=== PATIENT | male | born 1950 | race Caucasian/White ===

== ENCOUNTER 2020-01-21 07:27 | Outpatient (CLI) | payer MEDICARE, OTHER, SELFPAY ==
--- NOTE | ~2020-01-21 | XR_ITS ---
EXAMINATION: CT abdomen pelvis wo/w con, XR abdomen/kub 1V DATE: 01/21/2020 08:14 INDICATION: Microscopic hematuria TECHNIQUE: 1. Computed tomography (CT) of the abdomen and pelvis was performed without intravenous contrast. CT of the abdomen and pelvis was then performed with a total of 130 mL Omnipaque-350 intravenous contras t using a double-bolus technique for simultaneous opacification of the renal parenchyma and renal col lecting system. Automated exposure control and iterative reconstruction technique were employed. The dose-length product was 836.58 mGy-cm. 2. AP view of the abdomen and pelvis was obtained on 2 radiographs. COMPARISON: None FINDINGS: CT UROGRAM: A few calcified nodules at the bilateral lower lobes as well as a few scattered splenic calcification s consistent with old granulomatous disease. Heart size is normal. No pericardial or pleural effusion . Liver, gallbladder pancreas and bilateral adrenal glands are normal. Air-fluid level within a 3.8 x 1.8 cm duodenal diverticulum posterior to the head of the pancreas. There are bilateral low-attenuat ion nonenhancing renal cysts the largest at the upper pole of the left kidney measuring 3.9 cm. No ur olithiasis or suspicious renal parenchymal lesions. The bilateral ureters are opacified in their enti rety and demonstrate no filling defects or urothelial irregularities. Bilateral ureteral jets are vis ualized within the normal-appearing bladder. Mild scattered colonic diverticulosis with sigmoid predo minance and without adjacent inflammatory change to suggest diverticulitis. Small bowel and appendix are normal. No free intraperitoneal gas or fluid. No pathologically enlarged abdominal or pelvic lymp hadenopathy. There is calcified atherosclerosis of the aorta and many of the other arteries. Mild lum bar levocurvature with moderate to severe spondylosis. ABDOMEN RADIOGRAPH(S): Tiny phlebolith in the left hemipelvis. There are couple small calcified granulomata in the right low er lobe projecting over the liver. No urolithiasis. Normal bowel gas pattern. IMPRESSION: 1. Bilateral renal cysts. Otherwise normal kidneys, ureters and bladder with no suspicious parenchyma l lesions, urolithiasis or urothelial irregularities. Reviewed, dictated and finalized at location A. IMPRESSION: 1. Bilateral renal cysts. Otherwise normal kidneys, ureters and bladder with no suspicious parenchymal lesions, urolithiasis or urothelial irregularities.
[2020-01-21 07:59] LABS: Estimated Glomerular Filt Rate 60
== END 2020-01-21 07:28 | disposition home or self-care (01) ==
PROVIDERS: PCP Family Medicine; Visit Provider Urology
DX: R31.29 Other microscopic hematuria (principal); N28.1 Cyst of kidney, acquired
CPT/HCPCS: 36415; 74018; 74178; Q9967

== ENCOUNTER → 2021-09-15 07:32 | Outpatient (CLI) | payer MEDICARE, OTHER, SELFPAY ==
--- NOTE | ~2021-09-15 | MR_ITS ---
EXAMINATION: MR knee LT wo con DATE: 09/15/2021 08:08 INDICATION: Left knee pain. TECHNIQUE: Magnetic resonance imaging (MRI) of the left knee was performed without intravenous contra st. Sequences included axial PD-weighted FS FSE, coronal PD-weighted FSE and PD-weighted FS FSE, sagi ttal PD-weighted FSE, and sagittal T2-weighted FS FSE. COMPARISON: None. FINDINGS: Medial compartment: Medial meniscus is normal. There is deep partial thickness cartilage loss of femoral condyle involvin g the central articular surface. Tibial cartilage is normal. Lateral compartment: Lateral meniscus is normal. Lateral compartment cartilage is normal. Patellofemoral compartment: There is shallow partial-thickness cartilage loss of patellar lateral facet. There is cartilage surfa ce irregularity of trochlea. There is edema in suprapatellar fat pad. Ligaments and tendons: The anterior and posterior cruciate ligaments are normal. There are changes of prior sprains of media l collateral ligament and fibular collateral ligament characterized by increased signal intensity pro ximally. There is mild patellar tendinopathy. Fluid: There is a small knee joint effusion. There is trace fluid in a Robert's cyst. Osseous/other: There is mild prepatellar and superficial infrapatellar bursitis. IMPRESSION: 1. Moderate chondrosis of medial compartment and mild chondrosis of patellofemoral compartment. 2. Small knee joint effusion. Reviewed, dictated and finalized at location A. PAD GRINDER IMPRESSION: 1. Moderate chondrosis of medial compartment and mild chondrosis of patellofemo ral compartment. 2. Small knee joint effusion.
== END ==
PROVIDERS: PCP Family Medicine; Visit Provider Nurse Practitioner
DX: M25.562 Pain in left knee (principal); M22.2X2 Patellofemoral disorders, left knee; M25.462 Effusion, left knee
CPT/HCPCS: 73721

== ENCOUNTER 2021-09-19 13:10 | Outpatient (CLI) | payer MEDICARE, OTHER, SELFPAY ==
--- NOTE | 2021-09-19 13:56 | ECHO_ITS ---
Patient Info Name: Silveiro Tavera Age: 71 years : 1950 Gender: Male Ht: 69 in Wt: 190 lbs BSA: 2.07 m2 HR: 65 bpm BP: 148 / 93 mmHg Heart Rhythm: Sinus Rhythm Technical Quality: Fair Exam Date: 09/19/2021 2:05 PM Exam Location: [facility] Pulmonary Patient Status: Outpatient Admit Date: 09/19/2021 Staff Ordering Physician: Umu Carey MD Watermelon Inspector: Carmen Solares RDCS Attending Provider: Umu Carey MD Exam Type: CA echo doppler color flow Study Info Indications - essential htn, cardiac murmur Complete two-dimensional, color flow and Doppler transthoracic echocardiogram is performed. Summary 1. Complete two-dimensional, color flow and Doppler transthoracic echocardiogram is performed. 2. Left ventricular chamber dimension is normal. 3. Ventricular septum is sigmoid shaped. No LVOT obstruction. 4. Left ventricular systolic function is normal, estimated at 65-70%. 5. The left ventricular diastolic function is normal. 6. E/e' 7 is not elevated. 7. There is trace tricuspid valve regurgitation. 8. No pulmonary hypertension, estimated pulmonary arterial systolic pressure is 26 mmHg. 9. The aortic root size at the sinus of Valsalva is borderline dilated at 4.0 cm. 10. There is trivial pericardial effusion. Left Ventricle E/e' 7 is not elevated. Ventricular septum is sigmoid shaped. No LVOT obstruction. Left ventricular chamber dimension is normal. Left ventricular systolic function is normal, estimated at 65-70%. The left ventricular diastolic function is normal. Right Ventricle Right ventricular systolic function is normal and with normal TAPSE 2.0 cm. Right ventricular chamber dimension is normal. Left Atria Left atrial chamber dimension is normal. Right Atria Right atrial chamber dimension is normal. Aortic Valve The aortic valve is trileaflet. There is no aortic valve stenosis. There is no aortic valve regurgitation. Pulmonic Valve There is no pulmonic regurgitation. Mitral Valve There is no mitral valve stenosis. There is no mitral valve regurgitation. Tricuspid Valve There is trace tricuspid valve regurgitation. No pulmonary hypertension, estimated pulmonary arterial systolic pressure is 26 mmHg. Pericardium/Pleural There is trivial pericardial effusion. Inferior Vena Cava Normal inferior vena cava with >50% collapse upon inspiration consistent with normal right atrial pressure, 5 mmHg. Aorta The aortic root size at the sinus of Valsalva is borderline dilated at 4.0 cm. Left Ventricular Outflow Tract Name Value Normal LVOT 2D LVOT Diameter 2.0 cm LVOT Doppler LVOT Peak Gradient 7 mmHg LVOT Mean Gradient 3 mmHg LVOT VTI 28 cm LVOT VTI/AV VTI Ratio 0.9 LVOT Stroke Volume 88 ml LVOT CO 5.3 l/min LVOT CI 2.6 l/min/m2 Pulmonic Valve Name
== END 2021-09-19 13:11 | disposition home or self-care (01) ==
LOC: ANHCARD 13:11
PROVIDERS: PCP Family Medicine; Visit Provider Family Medicine
DX: I10 Essential (primary) hypertension (principal); R01.1 Cardiac murmur, unspecified
CPT/HCPCS: 93306

== ENCOUNTER 2021-11-20 14:39 | Inpatient (IN) | payer MEDICARE, OTHER, SELFPAY ==
--- NOTE | ~2021-11-20 | XR_ITS ---
EXAM: XR abdomen NG/feed tube insert HISTORY: NG tube insertion COMPARISON: CT abdomen and pelvis, same date. X-ray abdomen 01/21/2020. FINDINGS: Clear lung bases. NG tube, tip and side port project over the expected location of the sto mach. Multiple loops of dilated small bowel in the upper abdomen. IMPRESSION: NG tube, in good position. Reviewed, dictated and finalized at location K. IMPRESSION: NG tube, in good position.
--- NOTE | ~2021-11-20 | XR_ITS ---
EXAMINATION: XR abdomen obstructive series DATE: 11/22/2021 08:53 INDICATION: Follow-up small bowel obstruction TECHNIQUE: Supine and upright views of the abdomen. FINDINGS: Comparison to 11/21/2021 The visualized lung parenchyma is normal.. There is a nonobstructive bowel gas pattern. Gas and stool are seen throughout the colon to the level of the rectum. There is no free air. NG tube in the stom ach. IMPRESSION: 1. No acute abdominal abnormality. No definite small bowel dilation on the current examination. Reviewed, dictated and finalized at location A. IMPRESSION: 1. No acute abdominal abnormality. No definite small bowel dilation on the cur rent examination.
--- NOTE | ~2021-11-20 | XR_ITS ---
EXAMINATION: XR abdomen obstructive series DATE: 11/21/2021 08:20 INDICATION: Small bowel obstruction TECHNIQUE: Upright and supine views of the abdomen were obtained. COMPARISON: 11/20/2021 FINDINGS: The nasogastric tube is in the stomach. There are multiple persistently dilated loops of sm all bowel. No free intraperitoneal gas is identified. Contrast from earlier CT scan opacifies the uri nary bladder. There is severe lumbar spondylosis. IMPRESSION: 1. Small bowel obstruction without obvious change. Reviewed, dictated and finalized at location A.
--- NOTE | ~2021-11-20 | CT_ITS ---
EXAMINATION: CT abdomen pelvis w con DATE: 11/20/2021 16:04 INDICATION: Epigastric pain hx of SBO feels similar TECHNIQUE: Computed tomography (CT) of the abdomen and pelvis was performed with 100 mL Omnipaque-300 intravenous contrast. Automated exposure control and iterative reconstruction technique were employe d. The dose-length product was 752.34 mGy-cm. COMPARISON: 01/21/2020. FINDINGS: Lower thorax: Coronary artery calcifications. Liver: Normal. Biliary/Gallbladder: Gallbladder is normal. No bile duct dilation. Spleen: Normal. Pancreas: No mass or duct dilation. Adrenals:No mass. Kidneys: Bilateral atrophy. Bilateral cysts and probable cysts. GI tract: Gastric distention. Antral wall edema as can be seen with gastritis. Multiple loops of dila ginger small bowel, uniform mucosal enhancement, interloop fluid. Transition point in the right lower qu adrant. Diverticulosis without diverticulitis. Normal appendix. Mesentery/Peritoneum: No ascites, mass, or free air. Retroperitoneum: No mass. Pelvis: Pelvic organs are within normal limits. Soft Tissues: Soft tissues and body wall unremarkable. Bones: No acute osseous finding. IMPRESSION: Small bowel obstruction, transition point in the right lower quadrant possibly secondary to adhesion. Reviewed, dictated and finalized at location K.
[2021-11-20 14:41] VITALS: BP 142/82; PULSE 61; RESP 16; TEMP 36.2; O2SAT 96
--- NOTE | 2021-11-20 14:52 | ECG_ITS ---
Measurements Intervals [place] Rate: 65 P: 44 ME: 189 QRS: 24 QRSD: 91 T: 35 QT: 400 QTc: 417 Interpretive Statements SINUS RHYTHM WITH SINUS ARRHYTHMIA MINIMAL Q WAVES- INFERIOR LEADS BASELINE ARTIFACT- I, II, AVR, AVL, V5 BORDERLINE ECG Electronically Signed On 11-20-2021 16:32:58 CDT by Chidi Melgar D.O.
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
[2021-11-20 15:19] LABS: Basophils Percent Auto 0.5 % (0.2-1.2); Eosinophils Absolute Auto 0.1 K/mm3 (0-0.3); Hematocrit 40.2 % (42.0-52.0); Hemoglobin 13.7 g/dL (14.0-18.0); Immature Granulocyte Absolute 0.03 K/mm3 (0.00-0.031); Immature Granulocyte Percent A 0.4 % (0-0.5); Lymphocytes Absolute Auto 0.78 K/mm3 (0.9-3.2); Lymphocytes Percent Auto 9.9 % (18.3-44.2); Mean Corpuscular HGB Conc 34.1 g/dl (32-36); Mean Corpuscular Hemoglobin 31.9 pg (26-34); Mean Corpuscular Volume 93.7 fl (80-100); Monocytes Absolute Auto 0.4 K/mm3 (0.1-0.6); Monocytes Percent Auto 5.3 % (2.6-8.5); Neutrophils Absolute Auto 6.5 K/mm3 (1.3-6.7); Neutrophils Percent Auto 82.9 % (45.5-73.1); Platelet Count Result 172 k/mm3 (150-375); Red Blood Count 4.29 M/mm3 (4.6-6.20); Red Cell Distribution Width 11.7 % (11.5-14.5); White Blood Count 7.9 K/mm3 (4.5-10.0)
[2021-11-20 15:24] LABS: Lactic Acid Reflex 1.3 mmol/L (0.7-2.0)
[2021-11-20 15:28] LABS: Alanine Aminotransferase 17 U/L (6-50); Albumin Level 4.2 g/dL (3.5-5.1); Alkaline Phosphatase 62 U/L (38-126); Anion Gap 7 mmol/L (8-16); Aspartate Amino Transferase 29 U/L (17-59); Bilirubin,Total 0.6 mg/dL (0.2-1.3); Blood Urea Nitrogen 22 mg/dL (9-20); Calcium 8.8 mg/dL (8.4-10.2); Carbon Dioxide 31 mmol/L (22-30); Chloride 101 mmol/L (98-107); Estimated CRCL calculation 51 ml/min; Estimated Glomerular Filt Rate 60; Glucose 133 mg/dL (65-110); Lipase 132 U/L (23-300); Potassium 4.2 mmol/L (3.4-5.0); Sodium 139 mmol/L (137-145)
[2021-11-20] MEDS: LIDOCAINE HCL 2% VISC SOLN 15 ML UDC 20 ML PO (15:36)
[2021-11-20] MEDS: MAG HYDROX/AL HYDROX/SIMETH 30 ML UDC PO (15:36)
[2021-11-20] MEDS: SODIUM CHLORIDE 0.9% IV 1,000 ML 999 ML IV CONT (15:37)
[2021-11-20 16:36] LABS: Appearance Urine Clear (Clear); Bilirubin Urine Negative (Negative); Blood Urine 1+ (Negative); Color Urine Yellow (Yellow); Glucose Urine UA Negative (Negative); Ketones Urine 3+ mg/dL (Negative); Leukocyte Esterase Ur Negative LEU/UL (Negative); Nitrate Urine Negative (Negative); Protein Urine 1+ mg/dL (Negative); Specific Grav Ur 1.015 (1.001-1.035); Urobilinogen Urine 0.2 mg/dL (<2.0); pH Urine 7.5 (5.0-9.0)
[2021-11-20 16:38] LABS: Add Urine Microscopic? YES
[2021-11-20 16:48] LABS: Bacteria Urine Trace /hpf; Mucus Urine Rare /lpf; RBC Urine 21-50 /hpf (0-2); WBC Urine 0-3 /hpf
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
[2021-11-20 17:38] VITALS: BP 155/88; PULSE 67; RESP 17; O2SAT 97
[2021-11-20 18:18] LABS: SARS-CoV-2 RNA PCR Negative
[2021-11-20 19:08] VITALS: BP 146/76; PULSE 78; RESP 18; O2SAT 99
[2021-11-20 20:09] VITALS: BMI 28.5
[2021-11-20] MEDS: SODIUM CHLORIDE 0.9% IV 1,000 ML 125 ML IV CONT (20:12)
--- NOTE | 2021-11-20 21:25 | ADMGEN ---
This patient, Silverio Tavera, was admitted to 3 [facility] Surg Room 307-01. Patient/family oriented to hospital policies and general routines including ID bracelet, bed and alarms, visiting hours, pain management, procedures, bathroom and other care routines, personal items, smoking policy, room service/diet, and visiting hours. Information on how to activate the Rapid Response Team has been discussed. Patient/Family are encouraged to report perceived risks to care and to ask questions if they do not understand what they are told or what they should do.
[2021-11-20 22:00] VITALS: BP 133/76; PULSE 60; RESP 16; TEMP 36.5; O2SAT 95
[2021-11-21] MEDS: SODIUM CHLORIDE 0.9% IV 1,000 ML 125 ML IV CONT ×3 (04:21→23:54)
[2021-11-21] MEDS: ONDANSETRON INJ 4 MG/2 ML VIAL IV PUSH ×3 (04:39→13:07)
[2021-11-21 05:52] VITALS: BP 140/66; PULSE 71; RESP 16; TEMP 36.7; O2SAT 92
[2021-11-21 06:33] LABS: Basophils Percent Auto 0.5 % (0.2-1.2); Eosinophils Absolute Auto 0.1 K/mm3 (0-0.3); Eosinophils Percent Auto 1.3 % (0-4.4); Hematocrit 38.8 % (42.0-52.0); Hemoglobin 13.1 g/dL (14.0-18.0); Immature Granulocyte Absolute 0.01 K/mm3 (0.00-0.031); Immature Granulocyte Percent A 0.1 % (0-0.5); Lymphocytes Absolute Auto 0.79 K/mm3 (0.9-3.2); Lymphocytes Percent Auto 10.4 % (18.3-44.2); Mean Corpuscular HGB Conc 33.8 g/dl (32-36); Mean Corpuscular Hemoglobin 31.6 pg (26-34); Mean Corpuscular Volume 93.7 fl (80-100); Mean Platelet Volume 8.9 fl (7.4-10.4); Monocytes Absolute Auto 0.6 K/mm3 (0.1-0.6); Monocytes Percent Auto 7.4 % (2.6-8.5); Neutrophils Absolute Auto 6.1 K/mm3 (1.3-6.7); Neutrophils Percent Auto 80.3 % (45.5-73.1); Platelet Count Result 151 k/mm3 (150-375); Red Blood Count 4.14 M/mm3 (4.6-6.20); Red Cell Distribution Width 11.7 % (11.5-14.5); White Blood Count 7.6 K/mm3 (4.5-10.0)
[2021-11-21 06:51] LABS: Anion Gap 6 mmol/L (8-16); Blood Urea Nitrogen 18 mg/dL (9-20); Calcium 8.4 mg/dL (8.4-10.2); Carbon Dioxide 32 mmol/L (22-30); Chloride 103 mmol/L (98-107); Estimated CRCL calculation 56 ml/min; Estimated Glomerular Filt Rate > 60; Glucose 113 mg/dL (65-110); Magnesium 1.9 mg/dL (1.6-2.3); Potassium 3.7 mmol/L (3.4-5.0); Sodium 141 mmol/L (137-145)
[2021-11-21] MEDS: ENOXAPARIN 40 MG/0.4 ML SYRINGE SUB-Q (08:53)
[2021-11-21 09:55] VITALS: O2SAT 92
--- NOTE | 2021-11-21 11:48 | PM.CNGS ---
Assessment and Plan Assessment and plan (1) Bowel obstruction: Onset Date: ~11/2021 Qualifiers: Intestinal obstruction extent: unspecified extent Intestinal obstruction type: unspecified Qualified Code(s): K56.609 - Unspecified intestinal obstruction, unspecified as to partial versus complete obstruction Code(s): K56.609 - Unspecified intestinal obstruction, unspecified as to partial versus complete obstruction Status: Acute Assessment and Plan: Pt presents with an apparent SBO. He however has never had previous abd. surgery Therefore is some a unusual. Perhaps he has had some element of inflammatory change in the abdomen in the past that have led to adhesions. For now will treat conservatively with bowel rest, serial abdominal examinations and radiology tests and NG decompression. Plan repeat abdominal films morning and consider possible small-bowel follow-through. Patient knows surgical intervention may be needed if this does not resolve with conservative management. (2) Abdominal pain: Onset Date: ~11/2021 Qualifiers: Abdominal location: unspecified location Qualified Code(s): R10.9 - Unspecified abdominal pain Code(s): R10.9 - Unspecified abdominal pain Status: Acute Assessment and Plan: Related to gastric distension and obstruction. Somewhat improved after NG placement. (3) Essential hypertension: Onset Date: Unknown Code(s): I10 - Essential (primary) hypertension Status: Acute Assessment and Plan: hospitalist will order IV medications to control this until he can resume his oral medications. (4) BPH w/o urinary obs/LUTS: Onset Date: ~2016 Code(s): N40.0 - Benign prostatic hyperplasia without lower urinary tract symptoms Status: Acute Assessment and Plan: Resume home medications when able to get NG out (5) Dyslipidemia: Code(s): E78.5 - Hyperlipidemia, unspecified Status: Acute (6) Polymyalgia rheumatica: Code(s): M35.3 - Polymyalgia rheumatica Status: Acute (7) Depression: Qualifiers: Depression Type: unspecified Qualified Code(s): F32.9 - Major depressive disorder, single episode, unspecified Code(s): F32.9 - Major depressive disorder, single episode, unspecified Status: Acute History of Present Illness Consult details Consult date: 11/21/21 Reason for consult: abdominal pain Narrative: Patient is a pleasant 71-year-old white male presented the emergency room yesterday with nausea vomiting abdominal distention. Workup the emergency room revealed what appeared to be small-bowel obstruction with a transition zone in the right lower quadrant. (see CT report). NG tube was placed and he had about 2000 cc out overnight. He is feeling somewhat better today. He is passing a little bit of flatus he states. No bowel movement since entering the hospital. His last bowel movement was yesterday morning. Further history reveals that the patient a similar episode 51 years old. He remembers becoming sick at work then going to hospital and stain for about 4 days. He cannot remember if he had an NG to or what they told him caused the problem. Patient also knows that within the last for 5 years has had a colonoscopy and hadjust 1 or 2 polyps on that no other problems. Review of Systems Review of Systems: All systems reviewed & are unremarkable except as noted in HPI and below (HPI) Constitutional: Constitutional: Reports as per HPI, Denies chills, Reports fatigue and Denies fever(s) Eyes: Eyes: Reports no additional eye complaints ENT: Reports Normal hearing present and Denies dizziness Cardiovascular: Cardiovascular: Reports no additional cardiovascular complaints, Denies chest pain and Denies irregular heart rhythm Comments: Hx of HTN, Hyperlipidemia, and Respiratory: Respiratory: Reports no additional respiratory complaints Gastrointestin
[2021-11-21] MEDS: MORPHINE SULFATE (*CRX) 2 MG/ML INJ IV PUSH (14:13)
[2021-11-21 14:41] VITALS: BP 137/71; PULSE 71; RESP 16; TEMP 37; O2SAT 93
[2021-11-21] MEDS: PROCHLORPERAZINE EDISYLATE 10 MG/2 ML VIAL IV PUSH (14:44)
--- NOTE | 2021-11-21 15:20 | PM.IMPN ---
Progress Note: A&P Assessment and Plan (1) Bowel obstruction: Qualifiers: Intestinal obstruction extent: unspecified extent Intestinal obstruction type: unspecified Qualified Code(s): K56.609 - Unspecified intestinal obstruction, unspecified as to partial versus complete obstruction Code(s): K56.609 - Unspecified intestinal obstruction, unspecified as to partial versus complete obstruction Status: Acute Assessment and Plan: Patient denies ever having any abdominal surgery, but states he did have a small bowel obstruction approximately 25 years ago. General surgery has been consult and appreciate further recommendations. Patient is to have an NG tube placed to low intermittent suction. Patient will be kept NPO at this time and hydrated with IV fluids. 11/21/2021 interval history: patient with abdominal pain and history of small-bowel obstruction, CT scan of the abdomen showed patient has a a small-bowel obstruction and patient is placed on NG tube, this morning patient states he is passing gas, seen by surgery service KUB was done shows persistent small bowel obstruction, will continue present management with NG tube, hydration and pain management, will continue to monitor and further recommendation to follow. (2) Essential hypertension: Code(s): I10 - Essential (primary) hypertension Status: Acute Assessment and Plan: Patient is going to be NPO secondary to small-bowel obstruction. Will have p.r.n. medication available for any hypertension. Will resume patient's home medications once patient is able to take oral intake. Will adjust medications accordingly for optimal blood pressure control. Subjective Date/time seen: 11/21/21 15:20 Chief Complaint: Abdominal pain HPI-Narrative: Mr. Tavera is a 71-year-old gentleman who presented emergency room with complaints of increasing abdominal pain that started around 10 30 this morning. Patient states that he got up this morning and was getting ready to watch his grandchildren and had 2 cups of coffee and thought he better eat breakfast. Patient states he did not feel like eating breakfast, but he make himself eat some cereal. Patient states after that at approximately 10:30 a.m. he began having abdominal pain with nausea. Patient states he felt extremely bloated and felt that if he would throw up he would feel better. Patient states he attempted to make himself vomit but he was unsuccessful. Patient states the abdominal bloating and pain became worse and he decided come to the emergency room. Patient states right before coming to the emergency room he did have a very small bowel movement. Patient states he typically has daily bowel movements without any difficulty. Patient states approximately 25 years ago he did have a small-bowel obstruction and he had an NG-tube placed, but the etiology of that bowel obstruction was never discovered. Patient denies having any abdominal surgeries. Patient does have a known history of diverticulosis, depression, hypertension, and BPH. Patient states he has been taking all medications without any difficulty him doing very well until 10 30 this morning. Patient states he is very active and he watches multiple grand children at least 3 times weekly. 11/21/2021 interval history: patient with abdominal pain and history of small-bowel obstruction, CT scan of the abdomen showed patient has a a small-bowel obstruction and patient is placed on NG tube, this morning patient states he is passing gas, seen by surgery service KUB was done shows persistent small bowel obstruction, will continue present management with NG tube, hydration and pain management, will continue to monitor and further recommendation to follow. Review of Systems Review of Systems: All systems reviewed & are unremarkable except as noted in HPI and below Exam Narrative: Patient is comfortable, NAD HEENT: eyes are clear and none icteric LUNGS:CTA HEART:
[2021-11-21 22:00] VITALS: BP 146/74; PULSE 73; RESP 18; TEMP 37.2; O2SAT 93
[2021-11-22 06:00] VITALS: BP 141/71; PULSE 74; RESP 18; TEMP 37; O2SAT 95
[2021-11-22 08:41] LABS: Hematocrit 35.9 % (42.0-52.0); Hemoglobin 11.6 g/dL (14.0-18.0); Mean Corpuscular HGB Conc 32.3 g/dl (32-36); Mean Corpuscular Hemoglobin 31.9 pg (26-34); Mean Corpuscular Volume 98.6 fl (80-100); Platelet Count Result 127 k/mm3 (150-375); Red Blood Count 3.64 M/mm3 (4.6-6.20); Red Cell Distribution Width 11.9 % (11.5-14.5); White Blood Count 6.5 K/mm3 (4.5-10.0)
[2021-11-22 08:50] LABS: Alanine Aminotransferase 14 U/L (6-50); Alkaline Phosphatase 45 U/L (38-126); Anion Gap 5 mmol/L (8-16); Aspartate Amino Transferase 23 U/L (17-59); Bilirubin,Total 0.5 mg/dL (0.2-1.3); Blood Urea Nitrogen 20 mg/dL (9-20); Calcium 7.6 mg/dL (8.4-10.2); Carbon Dioxide 28 mmol/L (22-30); Chloride 107 mmol/L (98-107); Estimated CRCL calculation 56 ml/min; Estimated Glomerular Filt Rate > 60; Glucose 105 mg/dL (65-110); Lactic Acid Reflex 0.8 mmol/L (0.7-2.0); Potassium 3.6 mmol/L (3.4-5.0); Sodium 140 mmol/L (137-145)
[2021-11-22 08:51] LABS: Magnesium 1.9 mg/dL (1.6-2.3)
--- NOTE | 2021-11-22 09:27 | PM.PNGS ---
Progress Note: A&P Assessment and Plan (1) Bowel obstruction: Onset Date: ~11/2021 Qualifiers: Intestinal obstruction extent: unspecified extent Intestinal obstruction type: unspecified Qualified Code(s): K56.609 - Unspecified intestinal obstruction, unspecified as to partial versus complete obstruction Code(s): K56.609 - Unspecified intestinal obstruction, unspecified as to partial versus complete obstruction Status: Acute Assessment and Plan: Seems to be resolving with conservative management. Will plan to clamp NG and give patient 1 dose of milk a magnesia. Will then leave the NG clamped and try clear liquids. If he is doing well without signs of nausea this afternoon will consider removing NG and advancing to full liquids. We did discuss possibility of a small bowel follow-through but since he is doing well he would like to see if he can advance without further problems. Since he has not had previous surgery I do not feel strongly that we needed since he is now having bowel movements and his plain films are showing no signs of obstruction. (2) Abdominal pain: Onset Date: ~11/2021 Qualifiers: Abdominal location: unspecified location Qualified Code(s): R10.9 - Unspecified abdominal pain Code(s): R10.9 - Unspecified abdominal pain Status: Acute Assessment and Plan: Now resolved. He states he does not have abdominal pain today. (3) Heart murmur: Onset Date: Unknown Code(s): R01.1 - Cardiac murmur, unspecified Status: Acute Assessment and Plan: Patient states that he has had an echocardiogram in the recent past. Dr. Carey, his primary care doctor, sent him for an echocardiogram which apparently showed and non concerning valvular dysfunction leading to the murmur. (4) Essential hypertension: Onset Date: Unknown Code(s): I10 - Essential (primary) hypertension Status: Acute Assessment and Plan: May be able to begin resuming oral meds for this if hospitalist feels comfortable. Subjective Subjective Date/Time Seen: 11/22/21 09:27 Patient reports: no new complaints and bowel movement Interval history: When I enter the room patient laying in bed with NG on. Only 300 cc out overnight. Patient states that he was able to walk 8 laps around the sq here on the floor last evening. He has had 2 separate bowel movements 1 at 4:00 a.m. 1 at 6:00 a.m. and feels much better. Review of Systems Review of Systems: All systems reviewed & are unremarkable except as noted in HPI and below Constitutional: Constitutional: Reports as per HPI, Denies chills and Denies fever(s) Cardiovascular: Cardiovascular: Denies chest pain and Denies dyspnea Respiratory: Respiratory: Reports no additional respiratory complaints and Denies dyspnea Gastrointestinal: Gastrointestinal: Reports as per HPI and Denies bloating Musculoskeletal: Musculoskeletal: Reports no additional musculoskeletal complaints Neurologic: Denies memory loss Psychiatric: Psychiatric: Denies anxiety and Denies memory loss Exam Const: General: cooperative, comfortable, alert and awake Orientation/consciousness: patient oriented x3 HENMT: Head: normal to inspection Mouth: Yes moist mucous membranes Chest: Chest palpation & inspection: normal inspection of the chest Resp: Effort & Inspection: normal respiratory effort Auscultation: clear to auscultation bilaterally Cardio: Jugular venous distension: no JVD Rate: regular rate GI: Inspection: normal to inspection and no scars GI Palp: No abdominal tenderness Auscultation: normal bowel sounds Other: Soft to palpation today without tenderness. Neuro: General: patient oriented x3 Cranial nerves: Yes Equal, round and reactive pupils present Objective Data Vital Signs Vital Signs: Vital Signs - 24 hr 11/21/21 09:55 11/21/21 14:41 11/21/21 22:00 Temperature 37.0 C 37.2 C Pulse R
[2021-11-22] MEDS: MAGNESIUM HYDROXIDE SUSP 30 ML UDC PO (09:50)
[2021-11-22] MEDS: BENZOCAINE/MENTHOL (*BKC) 18 EA LOZENGE 1 LOZENGE PO (09:51)
[2021-11-22] MEDS: ENOXAPARIN 40 MG/0.4 ML SYRINGE SUB-Q (09:51)
--- NOTE | 2021-11-22 12:27 | PM.IMPN ---
Progress Note: A&P Assessment and Plan (1) Bowel obstruction: Onset Date: ~11/2021 Qualifiers: Intestinal obstruction extent: unspecified extent Intestinal obstruction type: unspecified Qualified Code(s): K56.609 - Unspecified intestinal obstruction, unspecified as to partial versus complete obstruction Code(s): K56.609 - Unspecified intestinal obstruction, unspecified as to partial versus complete obstruction Status: Acute Assessment and Plan: Patient denies ever having any abdominal surgery, but states he did have a small bowel obstruction approximately 25 years ago. General surgery has been consult and appreciate further recommendations. Patient is to have an NG tube placed to low intermittent suction. Patient will be kept NPO at this time and hydrated with IV fluids. 11/21/2021 interval history: patient with abdominal pain and history of small-bowel obstruction, CT scan of the abdomen showed patient has a a small-bowel obstruction and patient is placed on NG tube, this morning patient states he is passing gas, seen by surgery service KUB was done shows persistent small bowel obstruction, will continue present management with NG tube, hydration and pain management, will continue to monitor and further recommendation to follow. 11/22/2021 interval history: patient with abdominal pain and history of small-bowel obstruction, CT scan of the abdomen showed patient has a a small-bowel obstruction and patient is placed on NG tube, this morning patient had two small BM, states he is passing gas, seen by surgery service KUB was done and it showed no SBO, surgeon as started the patient on clear liquid and will advance the diet as tolerated, will resume his home medications, will continue present managemen, hydration and pain management, will continue to monitor and further recommendation to follow. (2) Essential hypertension: Onset Date: Unknown Code(s): I10 - Essential (primary) hypertension Status: Acute Assessment and Plan: Patient is going to be NPO secondary to small-bowel obstruction. Will have p.r.n. medication available for any hypertension. Will resume patient's home medications once patient is able to take oral intake. Will adjust medications accordingly for optimal blood pressure control. Subjective Date/time seen: 11/22/21 12:27 11/22/2021 interval history: patient with abdominal pain and history of small-bowel obstruction, CT scan of the abdomen showed patient has a a small-bowel obstruction and patient is placed on NG tube, this morning patient had two small BM, states he is passing gas, seen by surgery service KUB was done and it showed no SBO, surgeon as started the patient on clear liquid and will advance the diet as tolerated, will resume his home medications, will continue present managemen, hydration and pain management, will continue to monitor and further recommendation to follow. Review of Systems Review of Systems: All systems reviewed & are unremarkable except as noted in HPI and below Exam Narrative: Patient is comfortable, NAD HEENT: eyes are clear and none icteric LUNGS:CTA HEART: RR S1S2 ABD: bowel sounds are faint diffusely tender Lower extremities: no edema SKIN: nonjaundiced Neuro: grossly intact. Objective Data Vital Signs Vital Signs: Vital Signs - 24 hr 11/21/21 14:41 11/21/21 22:00 11/22/21 06:00 Temperature 98.6 F 99.0 F 98.6 F Pulse Rate 71 73 74 Respiratory Rate 16 18 18 Blood Pressure 137/71 146/74 H 141/71 H Pulse Oximetry 93 93 95 Intake/Output Intake/Output: Intake & Output 11/19/21 11/20/21 11/21/21 11/22/21 23:59 23:59 23:59 23:59 Intake Total 1000 3000 0 Output Total 1200 2350 300 Balance -200 650 -300 Meds/Results Medications: Active Medications Generic Name Dose Route Start Last Admin Trade Name Freq PRN Reason Stop Dose Admin Benzocaine 1 lozenge 11/21/21 11:40 11/22/21 09:51 Benzoca
[2021-11-22 14:00] VITALS: BP 116/60; PULSE 56; RESP 16; TEMP 37.5; O2SAT 95
[2021-11-22] MEDS: SODIUM CHLORIDE 0.9% IV 1,000 ML 125 ML IV CONT (19:02)
[2021-11-22 20:00] VITALS: O2SAT 95
[2021-11-22 22:00] VITALS: BP 136/60; PULSE 61; RESP 18; TEMP 37; O2SAT 96
[2021-11-23] MEDS: SODIUM CHLORIDE 0.9% IV 1,000 ML 125 ML IV CONT (04:19)
--- NOTE | 2021-11-23 05:42 | PC.NURSE ---
0520: Pt very anxious at this time stating he wants to get out of his room and attempting to leave AMA. Informed pt that he will most likely be getting discharged today as we are slowing advancing his diet as tolerated due to previous NG tube insertion and small bowel obstruction. Radha Cruz RN spoke with pt also educating pt about the importance of the treatment process. Pt agreed to stay at this time.
[2021-11-23 06:00] VITALS: BP 158/71; PULSE 53; RESP 18; TEMP 36.8; O2SAT 100
[2021-11-23] MEDS: ENOXAPARIN 40 MG/0.4 ML SYRINGE SUB-Q (07:55)
--- NOTE | 2021-11-23 08:07 | PM.DS ---
DS: Admitting Diagnosis Discharge Date 11/23/2021 Admitting Diagnosis abdominal pain DS: Discharge Diagnosis Discharge Diagnosis (1) Bowel obstruction: Onset Date: ~11/2021 Qualifiers: Intestinal obstruction extent: unspecified extent Intestinal obstruction type: unspecified Qualified Code(s): K56.609 - Unspecified intestinal obstruction, unspecified as to partial versus complete obstruction Code(s): K56.609 - Unspecified intestinal obstruction, unspecified as to partial versus complete obstruction Status: Acute Assessment and Plan: Patient denies ever having any abdominal surgery, but states he did have a small bowel obstruction approximately 25 years ago. General surgery has been consult and appreciate further recommendations. Patient is to have an NG tube placed to low intermittent suction. Patient will be kept NPO at this time and hydrated with IV fluids. 11/21/2021 interval history: patient with abdominal pain and history of small-bowel obstruction, CT scan of the abdomen showed patient has a a small-bowel obstruction and patient is placed on NG tube, this morning patient states he is passing gas, seen by surgery service KUB was done shows persistent small bowel obstruction, will continue present management with NG tube, hydration and pain management, will continue to monitor and further recommendation to follow. 11/22/2021 interval history: patient with abdominal pain and history of small-bowel obstruction, CT scan of the abdomen showed patient has a a small-bowel obstruction and patient is placed on NG tube, this morning patient had two small BM, states he is passing gas, seen by surgery service KUB was done and it showed no SBO, surgeon as started the patient on clear liquid and will advance the diet as tolerated, will resume his home medications, will continue present managemen, hydration and pain management, will continue to monitor and further recommendation to follow. (2) Essential hypertension: Onset Date: Unknown Code(s): I10 - Essential (primary) hypertension Status: Acute Assessment and Plan: Patient is going to be NPO secondary to small-bowel obstruction. Will have p.r.n. medication available for any hypertension. Will resume patient's home medications once patient is able to take oral intake. Will adjust medications accordingly for optimal blood pressure control. DS: Summary Hospital Course Reason for hospitalization: Chief Complaint: Abdominal pain Narrative: Mr. Tavera is a 71-year-old gentleman who presented emergency room with complaints of increasing abdominal pain that started around 10 30 this morning. Patient states that he got up this morning and was getting ready to watch his grandchildren and had 2 cups of coffee and thought he better eat breakfast. Patient states he did not feel like eating breakfast, but he make himself eat some cereal. Patient states after that at approximately 10:30 a.m. he began having abdominal pain with nausea. Patient states he felt extremely bloated and felt that if he would throw up he would feel better. Patient states he attempted to make himself vomit but he was unsuccessful. Patient states the abdominal bloating and pain became worse and he decided come to the emergency room. Patient states right before coming to the emergency room he did have a very small bowel movement. Patient states he typically has daily bowel movements without any difficulty. Patient states approximately 25 years ago he did have a small-bowel obstruction and he had an NG-tube placed, but the etiology of that bowel obstruction was never discovered. Patient denies having any abdominal surgeries. Patient does have a known history of diverticulosis, depression, hypertension, and BPH. Patient states he has been taking all medications without any difficulty him doing very well until 10 30 this morning. Patient states he is very active and he watches mult
--- NOTE | 2021-11-23 08:29 | PM.PNGS ---
Progress Note: A&P Assessment and Plan (1) Bowel obstruction: Onset Date: ~11/2021 Qualifiers: Intestinal obstruction extent: unspecified extent Intestinal obstruction type: unspecified Qualified Code(s): K56.609 - Unspecified intestinal obstruction, unspecified as to partial versus complete obstruction Code(s): K56.609 - Unspecified intestinal obstruction, unspecified as to partial versus complete obstruction Status: Acute Assessment and Plan: Seems to be resolving with conservative management. Patient received 1 dose of milk a magnesia yesterday and has had multiple soft stools.. We did discuss possibility of a small bowel follow-through but since he is doing well he would like to see if he can advance without further problems. We will consider this as an outpatient especially if he has a colonoscopy and nothing is found on that. Ideally at the time of colonoscopy attempt would be made to enter the distal ileum and be sure there was no abnormalities the distal small bowel. Since he has not had previous surgery I do not feel strongly that we needed The SBFT since he is now having bowel movements and his plain films are showing no signs of obstruction. Our plan now is for him to return to see me in the office and have a further discussion regarding further workup because this is the 2nd time in the last 20 years he has had a small bowel obstruction bring him to the hospital requiring NG decompression. He has have never had previous surgery so other sources may need to be checked to be sure that this is well worked up. Possibilities will be 1st outpatient small-bowel follow-through to check for if any other abnormalities or we could consider a capsule endoscopy. Agree with discharge for today. Discharge instructions from surgery point of view placed in the discharge section of the chart. (2) Abdominal pain: Onset Date: ~11/2021 Qualifiers: Abdominal location: unspecified location Qualified Code(s): R10.9 - Unspecified abdominal pain Code(s): R10.9 - Unspecified abdominal pain Status: Acute Assessment and Plan: Now resolved. He states he does not have abdominal pain today. (3) Heart murmur: Onset Date: Unknown Code(s): R01.1 - Cardiac murmur, unspecified Status: Acute Assessment and Plan: Patient states that he has had an echocardiogram in the recent past. Dr. Carey, his primary care doctor, sent him for an echocardiogram which apparently showed and non concerning valvular dysfunction leading to the murmur. (4) Essential hypertension: Onset Date: Unknown Code(s): I10 - Essential (primary) hypertension Status: Acute Assessment and Plan: May be able to begin resuming oral meds for this if hospitalist feels comfortable. Subjective Subjective Date/Time Seen: 11/23/21 08:29 Patient is sitting up in the chair when I entered the room. He states he is ready to go home. Just receiving his full liquid breakfast. Would like to make sure he tolerates that. He has had another bowel movement this morning and feels well denies any abdominal pain or nausea. Review of Systems Review of Systems: All systems reviewed & are unremarkable except as noted in HPI and below Constitutional: Constitutional: Reports as per HPI, Denies chills, Reports fatigue and Denies fever(s) Eyes: Eyes: Reports no additional eye complaints ENT: Reports Normal hearing present and Denies dizziness Cardiovascular: Cardiovascular: Reports no additional cardiovascular complaints, Denies chest pain, Denies irregular heart rhythm and Denies dyspnea Respiratory: Respiratory: Reports no additional respiratory complaints, Reports no additional respiratory complaints and Denies dyspnea Gastrointestinal: Gastrointestinal: Reports as per HPI, Reports no additional gastrointestinal complaints, Denies abdominal pain and Denies bloating Ge
== END 2021-11-23 09:20 | disposition home or self-care (01) | DRG 390 ==
LOC: ANHED 17:09 → ANH3MEDSUR 23:38
PROVIDERS: Nurse Practitioner Adult Health; Surgery; Admitting Provider Family Medicine; Emergency Provider Emergency Medicine; PCP Family Medicine; Visit Provider Family Medicine
DX: K56.609 Unspecified intestinal obstruction, unspecified as to partial versus complete obstruction (principal); I10 Essential (primary) hypertension; Z20.822 Contact with and (suspected) exposure to COVID-19; N40.0 Benign prostatic hyperplasia without lower urinary tract symptoms; E78.5 Hyperlipidemia, unspecified; M35.3 Polymyalgia rheumatica; F32.A Depression, unspecified; K57.90 Diverticulosis of intestine, part unspecified, without perforation or abscess without bleeding; R01.1 Cardiac murmur, unspecified; Z79.82 Long term (current) use of aspirin
CPT/HCPCS: 36415; 74019; 74177; 80048; 80053; 81001; 83605; 83690; 83735; 85025; 85027; 93005; 96360; 99285; A9270; C9803; G0378; J0131; J0780; J1650; J2270; J2405; J7030; Q9967; U0003; U0005

== ENCOUNTER 2022-01-22 08:20 | Outpatient (CLI) | payer MEDICARE, OTHER, SELFPAY ==
--- NOTE | ~2022-01-22 | XR_ITS ---
EXAMINATION: XR small bowel follow through DATE: 01/22/2022 10:36 INDICATION: Unspecified intestinal obstruction. TECHNIQUE: Oral contrast was administered, and a time course of radiographs of the abdomen was obtain ed. Fluoroscopy of the small bowel was not performed. Fluoroscopy exposure time was 0 minutes. The to brisa number of images was 8. COMPARISON: CT abdomen and pelvis 11/20/2021 FINDINGS: There are no dilated loops of bowel. There is no abnormal mass or stricture. Transit time from the st [facility] to proximal colon was approximately 1 hour and 30 minutes. IMPRESSION: 1. Normal small bowel series. Reviewed, dictated and finalized at location A.
== END 2022-01-22 08:21 | disposition home or self-care (01) ==
PROVIDERS: PCP Family Medicine; Visit Provider Nurse Practitioner Family
DX: K56.609 Unspecified intestinal obstruction, unspecified as to partial versus complete obstruction (principal)
CPT/HCPCS: 74250

== ENCOUNTER 2022-02-08 01:41 | Day surgery (SDC) | payer MEDICARE, OTHER, SELFPAY ==
[2022-01-28 11:34] VITALS: BMI 27.3
--- NOTE | 2022-02-07 11:54 | SUR.PREOP ---
1153 spoke with the patient regarding the magnesium citrate recall. Instructed the patient not to take the magnesium citrate. patient voiced understanding.
[2022-02-08 10:09] VITALS: BP 150/78; PULSE 50; RESP 17; TEMP 36.6; O2SAT 100
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
[2022-02-08] MEDS: LACTATED RINGERS 1,000 ML 150 ML IV CONT (10:30)
--- NOTE | 2022-02-08 10:47 | WPDHPUPDATE1 ---
History and Physical Update Update Date/Time: 02/08/22 10:47 History and Physical has been reviewed, including an updated exam of the patient. There are NO changes in the patient's condition. Risks, benefits, and alternatives have been discussed and questions answered. Patient agrees to proceed with procedure.
[2022-02-08 11:28] VITALS: BP 100/62; PULSE 59; RESP 24; O2SAT 100
--- NOTE | 2022-02-08 11:35 | SUR.OPER ---
EGD START 1106, END 1107. COLONOSCOPY START 1114, END 1124.
[2022-02-08 11:38] VITALS: BP 111/67; PULSE 63; RESP 18; O2SAT 97
[2022-02-08 11:48] VITALS: BP 128/74; PULSE 51; RESP 16; O2SAT 97
== END 2022-02-08 11:58 | disposition home or self-care (01) ==
PROVIDERS: PCP Family Medicine; Referring Provider Surgery; Visit Provider Internal Medicine Gastroenterology
PROC: 0DJ08ZZ Inspection of Upper Intestinal Tract, Via Natural or Artificial Opening Endoscopic (ICD-10-PCS; CPT 43235; principal; 2022-02-08 10:45)
DX: Z09 Encounter for follow-up examination after completed treatment for conditions other than malignant neoplasm (principal); D12.2 Benign neoplasm of ascending colon; K64.8 Other hemorrhoids; K57.30 Diverticulosis of large intestine without perforation or abscess without bleeding; Z87.19 Personal history of other diseases of the digestive system; I10 Essential (primary) hypertension; N40.0 Benign prostatic hyperplasia without lower urinary tract symptoms; E78.5 Hyperlipidemia, unspecified; F32.A Depression, unspecified; E78.00 Pure hypercholesterolemia, unspecified; M35.3 Polymyalgia rheumatica; Z79.82 Long term (current) use of aspirin
CPT/HCPCS: 45385; 43235; 88305; J2704; J7120

== ENCOUNTER 2022-06-28 09:14 | Outpatient (CLI) | payer MEDICARE, OTHER, SELFPAY ==
[2022-06-28 19:07] LABS: Kit Draw Collected
== END 2022-06-28 09:15 | disposition home or self-care (01) ==
LOC: ANHGOSHLAB 09:15
PROVIDERS: PCP Family Medicine; Visit Provider Nurse Practitioner Family
DX: E78.5 Hyperlipidemia, unspecified (principal); I10 Essential (primary) hypertension; Z12.5 Encounter for screening for malignant neoplasm of prostate
CPT/HCPCS: 36415

== ENCOUNTER 2022-08-22 07:10 | Outpatient (CLI) | payer MEDICARE, OTHER, SELFPAY ==
--- NOTE | ~2022-08-22 | CT_ITS ---
Non-contrast CT scan of the Abdomen and Pelvis Clinical indication: Abdominal pain Technique: 5 mm axial scans were obtained through the abdomen and pelvis without intravenous or oral contrast. Dose reduction technique was used on this scan by utilizing automated exposure control and iterative reconstruction technique. The dose-length product (DLP) was 621.12 mGy-cm. COMPARISON: 11/20/2021 Findings: Images through the lung bases reveal no abnormalities. There is no evidence of renal or ureteral calculi. The kidneys and the ureters are nondilated. Small bilateral simple renal cysts are present. The liver, spleen, pancreas, gallbladder, and adrenals appear normal. There is no aortic aneurysm. There is no evidence of bowel obstruction. Duodenal diverticulum noted. No acute inflammatory process identified. Images through the pelvis were performed. There is no evidence of ascites or lymphadenopathy. Urinary bladder unremarkable. Prostate gland and seminal vesicles are unremarkable. Impression: No acute abnormality seen. Duodenal diverticulum. Reviewed, dictated and finalized at [facility]. [employer] Impression: No acute abnormality seen. Duodenal diverticulum.
== END 2022-08-22 07:11 | disposition home or self-care (01) ==
PROVIDERS: PCP Family Medicine; Visit Provider Nurse Practitioner Family
DX: R10.32 Left lower quadrant pain (principal); K57.10 Diverticulosis of small intestine without perforation or abscess without bleeding
CPT/HCPCS: 74176

== ENCOUNTER 2024-02-18 07:50 | Outpatient (CLI) | payer MEDICARE, SELFPAY ==
--- NOTE | ~2024-02-18 | CT_ITS ---
EXAMINATION: CT abdomen pelvis wo/w con DATE: 02/18/2024 08:42 INDICATION: Microscopic hematuria. TECHNIQUE: Computed tomography (CT) of the abdomen and pelvis was performed without and with intraven ous contrast using a total of 130 mL Omnipaque-350 intravenous contrast with a double-bolus technique for simultaneous opacification of the renal parenchyma and renal collecting system. Automated exposu re control and iterative reconstruction technique were employed. The dose-length product was 1457.77 mGy-cm. COMPARISON: CT abdomen and pelvis 08/22/2022 FINDINGS: The visualized portions of the lung bases demonstrate mild atelectasis. Calcified bilateral lung nodu les are consistent with old granulomatous disease. No pleural effusion. The heart size is normal. The re are coronary artery calcifications. No pericardial effusion. The liver is normal. Calcifications i n the spleen are consistent with old granulomatous disease. The gallbladder, pancreas, and adrenal gl ands are normal. There are cysts in the kidneys measuring up to 3.9 cm on the left. There is no uroli thiasis. The ureters are well opacified and are normal. The bladder is not well distended and only pa rtially opacified, but is normal. Aortic atherosclerosis is noted. There are no pathologically enlarg ed lymph nodes. There is no free intraperitoneal fluid. There is prominent fat in the bilateral ingui nal canals that may be hernias. There is severe lumbar spondylosis. IMPRESSION: 1. No etiology for hematuria. Reviewed, dictated and finalized at location A.
[2024-02-18 08:22] LABS: Estimated Glomerular Filt Rate 37
== END 2024-02-18 07:51 | disposition home or self-care (01) ==
PROVIDERS: PCP Family Medicine; Visit Provider Nurse Practitioner Family
DX: R31.29 Other microscopic hematuria (principal)
CPT/HCPCS: 74178; Q9967

== ENCOUNTER 2024-05-24 07:44 | Outpatient (CLI) | payer MEDICARE, OTHER, SELFPAY | END 2024-05-24 07:45 | disposition home or self-care (01) | PROVIDERS: PCP Family Medicine; Visit Provider Urology | DX: Z01.818 Encounter for other preprocedural examination (principal); Z87.438 Personal history of other diseases of male genital organs | CPT/HCPCS: 87086 ==

== ENCOUNTER 2024-06-02 01:18 | Day surgery (SDC) | payer MEDICARE, OTHER, SELFPAY ==
--- NOTE | 2024-05-20 13:16 | PC.NURSE ---
Report to the Outpatient Waiting Room, entrance under the green pavilion located off [facility], at time _12:30 PM on date06/02/24 . Planned Procedure Time: __2:30 PM .? Time changes happen often and if your time is changed the preop area will call you the afternoon before. - You and your visitor will be asked to self-screen and do not enter if you have any COVID symptoms. Please call surgeon if you need to reschedule. - A mask is optional within the hospital at this time. Patients may have clear liquids (water, carbonated beverages, clear teas, apple juice) until 3 hours prior to surgery (11:30 AM)with a maximum of 20 ounces. - No food from midnight until time of surgery and no smoking - Infants may have breast milk until 4 hours before surgery, formula 6 hours prior to surgery. - Children will be allowed to drink immediately following surgery.? If applicable, please bring a bottle or sippy cup to assist with drinking. Juice, water, soda, and popsicles are readily available.? For infants on formula, please bring formula the day of surgery.? Pacifiers are allowed. Take only the following medications with a SIP of water on the morning of surgery: _NEBIVOLOL,SERTRALINE DO NOT STOP ANY OF YOUR OTHER PRESCRIPTION MEDICATIONS PRIOR TO SURGERY EXCEPT THE FOLLOWING Medications to discontinue per physician __HOLD ALL VITAMINS AND SUPPLEMENTS 3 DAYS PRE OP. Date to take last dose____05/29/24 Please no make-up, nail albanian, hairspray, perfume, deodorant, or body powder the day of surgery.? No jewelry (including any body piercings) or valuables the day of surgery, leave them at home.? Please take a shower or bath the night before, or the morning of, surgery with an antibacterial soap.? Wear comfortable, loose fitting clothing.? Children are encouraged to wear pajamas. - Jewelry must be removed prior to entering the operating room.? Rings and piercings that are not removed may be cut off. - The hospital will not accept responsibility for valuables.? - Please leave all valuables, including medications, at home the day of surgery. If you are going home after surgery, a licensed goat driver must drive you home.? - NO public transportation without another adult if you receive anesthesia. - We recommend that an adult stay with you for 24 hours following discharge. - We also recommend that you do not drive, make important decision, drink alcoholic beverages, or take any drugs that were not prescribed by your health care provider for at least 24 hours after your discharge time. For Pediatric surgeries, we recommend two adults accompany the child home. Follow any additional instructions given to you from your surgeon. Telephone instructions given to __PATIENT and asked if any additional questions and then verbalized understanding. Patient advised to call surgeon office or pre surgery nurse liaison [phone] if any additional questions.
[2024-05-20 13:22] VITALS: BMI 28.8
[2024-06-02 10:00] VITALS: BP 137/70; PULSE 60; RESP 14; TEMP 36.5; O2SAT 100
[2024-06-02] MEDS: LACTATED RINGERS 1,000 ML 30 ML IV CONT (10:00)
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
--- NOTE | 2024-06-02 10:26 | WPDHPUPDATE1 ---
History and Physical Update Update Date/Time: 06/02/24 10:26 History and Physical has been reviewed, including an updated exam of the patient. There are NO changes in the patient's condition. Risks, benefits, and alternatives have been discussed and questions answered. Patient agrees to proceed with procedure.
[2024-06-02] MEDS: ACETAMINOPHEN 500 MG TABLET 1000 MG PO (10:39)
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
[2024-06-02] MEDS: ceFAZolin 2 GM/D5W 50 ML 2 GM/50 ML BAG IVPB (10:58)
[2024-06-02] MEDS: LIDOCAINE HCL 2% GEL UROJET 10 ML PKG MUCOUS MEM (11:12)
--- NOTE | 2024-06-02 11:15 | W.PM.PROC2 ---
Procedure Note - Detailed Date of Procedure 06/02/24 Pre-op Diagnosis microscopic hematuria, bph Post-op Diagnosis Same Procedure Performed Flexible cystoscopy Surgeon Duarte Choi MD Anesthesia MAC and Local Description of Procedure Informed consent is obtained. Patient taken to the operating room He is given preoperative IV antibiotics. He was given a MAC anesthetic. The flexible cystoscope was inserted through the urethra into the bladder. Patient had bilobar prostatic hyperplasia. Inspection of bladder revealed mild trabeculation masses. There are no stones. There were no tumors. There were bilateral orthotopic ureteral orifices. Scope was removed. Lidocaine was instilled. Patient was awakened taken recovery room stable condition Pathology None sent Complications No immediate complications Condition Stable Disposition PACU
[2024-06-02 11:21] VITALS: BP 100/58; PULSE 60; RESP 16; O2SAT 100
[2024-06-02 11:50] VITALS: BP 107/65; PULSE 57; RESP 16; O2SAT 100
[2024-06-02 12:10] VITALS: BP 123/71; PULSE 55; RESP 18
== END 2024-06-02 12:15 | disposition home or self-care (01) ==
PROVIDERS: PCP Family Medicine; Visit Provider Urology
PROC: 0TBB8ZX Excision of Bladder, Via Natural or Artificial Opening Endoscopic, Diagnostic (ICD-10-PCS; CPT 52204; principal; 2024-06-02 11:30)
DX: R31.29 Other microscopic hematuria (principal); N40.0 Benign prostatic hyperplasia without lower urinary tract symptoms; N32.89 Other specified disorders of bladder; I10 Essential (primary) hypertension; E78.00 Pure hypercholesterolemia, unspecified; M35.3 Polymyalgia rheumatica; F32.A Depression, unspecified
CPT/HCPCS: 52000; A9270; J0690; J2003; J2405; J2704; J3010; J7120

== ENCOUNTER 2024-06-14 10:09 | Outpatient (CLI) | payer MEDICARE, SELFPAY ==
[2024-06-14 14:14] LABS: Alanine Aminotransferase 19 U/L (6-50); Albumin Level 4.2 g/dL (3.5-5.1); Alkaline Phosphatase 58 U/L (38-126); Anion Gap 3 mmol/L (4-12); Aspartate Amino Transferase 48 U/L (17-59); Bilirubin,Total 0.7 mg/dL (0.2-1.3); Blood Urea Nitrogen 19 mg/dL (9-20); Calcium 8.9 mg/dL (8.4-10.2); Carbon Dioxide 31 mmol/L (22-30); Chloride 104 mmol/L (98-107); Cholesterol 205 mg/dL (0-200); Estimated Glomerular Filt Rate 50; Glucose 95 mg/dL (65-110); HDL Direct 50 mg/dL; Potassium 4.3 mmol/L (3.4-5.0); Sodium 138 mmol/L (137-145); Triglycerides 190 mg/dL (<150)
[2024-06-14 14:25] LABS: LDL Cholesterol Direct 91 mg/dL; Vitamin D 25 Hydroxy 44.5 ng/mL
== END 2024-06-14 10:10 | disposition home or self-care (01) ==
LOC: ANHGOSHLAB 10:11
PROVIDERS: PCP Student in an Organized Health Care Education/Training Program; Visit Provider Student in an Organized Health Care Education/Training Program
DX: E78.5 Hyperlipidemia, unspecified (principal); I10 Essential (primary) hypertension; E55.9 Vitamin D deficiency, unspecified
CPT/HCPCS: 36415; 80053; 80061; 82306

== ENCOUNTER 2024-09-10 12:06 | Emergency (ER) | payer MEDICARE, OTHER, SELFPAY ==
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
[2024-09-10 12:19] VITALS: BP 158/89; PULSE 73; RESP 16; TEMP 37.1; O2SAT 99
[2024-09-10 12:59] LABS: EDCOVIDSCREEN Negative (Negative); EDINFLUASCREEN Negative (Negative); EDINFLUBSCREEN Negative (Negative)
== END 2024-09-10 13:17 | disposition home or self-care (01) ==
PROVIDERS: Emergency Provider Nurse Practitioner Family; PCP Family Medicine
DX: J40 Bronchitis, not specified as acute or chronic (principal); Z20.822 Contact with and (suspected) exposure to COVID-19; I10 Essential (primary) hypertension; E78.00 Pure hypercholesterolemia, unspecified; E78.5 Hyperlipidemia, unspecified; N40.0 Benign prostatic hyperplasia without lower urinary tract symptoms; M35.3 Polymyalgia rheumatica
CPT/HCPCS: 87426; 87804; 99213; G0463

== ENCOUNTER 2024-10-14 12:20 | Emergency (ER) | payer MEDICARE, OTHER, SELFPAY ==
--- NOTE | ~2024-10-14 | XR_ITS ---
CHEST RADIOGRAPH, PA AND LATERAL CLINICAL HISTORY: cough x3 wks, non smoker . COMPARISON: 05/24/2022 TECHNIQUE: PA and lateral views of the chest. FINDINGS The cardiomediastinal silhouette is unremarkable. The lungs are clear. Visualized osseous structures and soft tissues are unremarkable. IMPRESSION: No focal infiltrate or effusion. Reviewed, dictated and finalized at location A.
[2024-10-14 12:28] VITALS: BP 166/93; PULSE 67; RESP 16; TEMP 36.7; O2SAT 95
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
--- NOTE | 2024-10-14 13:23 | ECG_ITS ---
Test Date: 2024-10-14 13:30:14 Measurements Intervals [place] Rate: 57 P: 49 CO: 207 QRS: 15 QRSD: 95 T: 29 QT: 400 QTc: 390 Interpretive Statements SINUS BRADYCARDIA WITH FIRST DEGREE AV BLOCK INFERIOR INFARCT, AGE INDETERMINATE BASELINE ARTIFACT- I, II, AVR ABNORMAL ECG No previous ECG available for comparison Electronically Signed On 10-14-2024 13:57:22 CDT by Chidi Melgar D.O.
== END 2024-10-14 13:48 | disposition short-term general hospital (02) ==
LOC: EXPGOSH 12:22
PROVIDERS: Emergency Provider Nurse Practitioner
DX: R42 Dizziness and giddiness (principal); R05.3 Chronic cough; R94.31 Abnormal electrocardiogram [ECG] [EKG]; I10 Essential (primary) hypertension; E78.00 Pure hypercholesterolemia, unspecified; E78.5 Hyperlipidemia, unspecified; N40.0 Benign prostatic hyperplasia without lower urinary tract symptoms; M35.3 Polymyalgia rheumatica
CPT/HCPCS: 71046; 93005; 93010; 99213; G0463

== ENCOUNTER 2024-10-14 14:05 | Emergency (ER) | payer MEDICARE, OTHER, SELFPAY ==
[2024-10-14] VITALS (8 sets, daily range): BP systolic 150–173; BP diastolic 66–94; PULSE 57–66; RESP 16–19; TEMP 36.6; O2SAT 96–99
--- NOTE | ~2024-10-14 | CT_ITS ---
EXAMINATION: CT brain wo con DATE: 10/14/2024 15:30 INDICATION: dizziness . TECHNIQUE: Computed tomography (CT) of the head was performed without intravenous contrast. The mA wa s adjusted according to patient size. Iterative reconstruction technique was employed. The dose-lengt h product was 681.00 mGy-cm. COMPARISON: None. FINDINGS: No acute intracranial hemorrhage or extra-axial fluid collection. No hydrocephalus, mass, or herniation. No acute ischemic infarct. Unremarkable dural venous sinus attenuation. No acute osseous abnormality. Aerated secretions in a right posterior ethmoid sinus and left inferior frontal sinus/anterior ethmoi d sinus, trace bilateral mastoid fluid, the remaining aerated spaces are clear. Atrophy and chronic white matter change. Atherosclerotic intracranial calcification. IMPRESSION: No acute intracranial process. Reviewed, dictated and finalized at location K.
--- OUTSIDE RECORDS SUMMARY | 2024-10-14 14:29 | XMS_ITS | Clinical Summary ---
Author Organization [facility] Address [address] [place] [id number] Care Team Providers Care Financial Institution President Name Role Phone None, Provider Primary Care Provider Unavaila ble Immunizations Name Administration Dates Next Due MODERNA COVID-19 (12+) MRNA, LNP-S, PF, 100 MCG/ 0.5 ML DOSE 09/05/2020,08/08/2020 Social History Tobacco Use Types Packs/Day Years Used Date Smoking Tobacco: Never Assessed Sex and Gender Information Value Date Recorded Sex Assigned at Not on file Legal Sex Male 6:24 PM CDT Gender Identity Not on file Sexual Orientation Not on file Plan of Treatment Health Maintenance Due Date Last Done Comments Colorectal Cancer Screening Colonoscopy (10 Years) 1951 Hepatitis C 1969 DTaP, Tdap and Td Vaccines ( 1 - Tdap) 1970 Zoster Vaccines (1 of 2) 2001 Annual Medicare Wellness Visit 2016 Pneumococcal Vaccine: 65+ Years (1 of 1 - PCV) 2016 COVID-19 Vaccine (3 - 2023-2 5 season) 2024 09/05/2020, 08/08/2020 Influenza Adult (#1) 2024 RSV Immunization or 60+ Years (1 - 1-dose 75+ series) 2026 Meningococcal B Vaccine Aged Out No l onger eligible based on patient's age to complete this topic Meningococcal Vaccine Aged Out No rosa donald eligible based on patient's age to complete this topic RSV Immunizations Under 20 Months Aged Out No longer eligible b ased on patient's age to complete this topic Insurance MEDICARE Care Teams Financial Institution President Relationship Specialty Start Date End Date None, Provider, PCP - General 04/15/19
--- OUTSIDE RECORDS SUMMARY | 2024-10-14 14:29 | XMS_ITS | Clinical Summary ---
Author Organization [facility] Address [address] [place] [address] Care Team Providers Care Edge Runner Name Role Phone Olesya Carey MD Primary Care Provider Allergies Active Allergy Reactions Criticality Noted Date Comments Penicillins Rash Medium 03/08/2024 Medications Restasis 0.05 % ophthalmic emulsion Administer 1 drop into both eyes every 12 (twelve) hours 4 Active finasteride (PROSCAR) 5 mg tablet Take 1 tablet (5 mg total) by mouth nightly at bedtime. 4 Active hydrocortisone (ANUSOL-HC) 25 mg suppository Insert 1 suppository (25 mg total) into the rectum 2 (two) times a day 4 Active nebivoloL (BYSTOLIC) 5 mg tablet Take 1 tablet (5 mg total) by mouth daily 4 Active sertraline (ZOLOFT) 50 mg tablet Take 1 tablet (50 mg total) by mouth daily 4 Active tamsulosin (FLOMAX) 0.4 mg extended release capsule Take 1 capsule (0.4 mg total) by mouth 2 (two) times a day 4 Active traZODone (DESYREL) 100 mg tablet Take 1 tablet (100 mg total) by mouth nightly at bedtime 4 Active Gemtesa 75 mg tablet Take 75 mg by mouth nightly 4 Active fluticasone propionate (FLONASE) 50 mcg/actuation nasal spray Administer 1 spray into each nostril daily as needed for rhinitis or allergies Active fish oil-dha-epa 1,200-144-216 mg capsule Take 1 capsule by mouth every morning Active fexofenadine (BRENTON) 180 mg tablet Take 1 tablet (180 mg total) by mouth daily Active Active Problems Problem Noted Date Diagnosed Date Small bowel obstruction 03/08/2024 Social History Tobacco Use Types Packs/Day Years Used Date Smoking Tobacco: Never Tobacco Cessation:Counseling Given: Not Answered [facility] Utilities Answer Date Recorded In the past 12 months has e [employer], [employer], oil, or water [employer] threatened to shut off services in your home? No 03/09/2024 Social Connection and Isolation Panel [NHANES] A nswer Date Recorded In a typical week, how many times do you talk on the phone with family, friends, or neighbors? Once a week 03/09/2024 How often do you get together with friends or re latives? Once a week 03/09/2024 How often do you attend sabianism or faith serv ices? Never 03/09/2024 Do you belong to any clubs o r organizations such as sabianism groups, unions, fraternal or athletic groups, or school groups? No 03/09/2024 How often do you attend meet ings of the clubs or organizations you belong to? Never 03/09/2024 Are you , , di vorced, , never , or living with a partner? 03/09/2024 Overall Financial Resource Strain (CARDIA) Answe r Date Recorded How hard is it for you to pa y for the very basics like food, housing, medical care, and heating? Not hard at all 03/09/2024 Hunger Vital Sign Answer Date Recorded Within the past 12 months, y ou worried that your food would run out before you got the money to buy more. Never true 03/09/20 24 Within the past 12 months, t he food you bought just didn't last and you didn't have money to get more. Never true 03/09/2024 PRAPARE - Transportation Answer Date Re corded In the past 12 months, has l ack of transportation kept you from medical appointments or from getting medications? No 02/12 In the past 12 months, has l ack of transportation kept you from meetings, work, or from getting things needed for daily living? No 03/09/2024 Housing Stability Vital Sign Answer John e Recorded In the last 12 months, was t here a time when you were not able to pay the mortgage or rent on time? No 03/09/2024 In the past 12 months, how m any times have you moved where you were living? 0 03/09/2024 At any time in the past 12 m [facility], were you homeless or living in a mcfp (including now)? No 03/09/2024 Personal Safety Answer Date Recorded Have you ever been in or are you currently in a harmful physical or emotional relationship or is someone making you feel afraid or unsafe? Denies 03/08/2024 Education Answer Date Recorded What is the highest level of school you have completed or the highest degree you have received? 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 Gender Identity Not on file Sexual Orientation Not on file Obstetrics History Last Filed Vital Signs Vital Sign Reading Time Taken Comments Blood Pressure 147/77 03/10/2024 11:20 AM CDT Pulse 68 03/10/2024 11:20 AM CDT Temperature 36.6 C (97.8 F) 03/10/2024 11:20 AM CDT Respiratory Rate 18 03/10/2024 11:20 AM CDT Oxygen Saturation 97% 03/10/2024 11:20 AM CDT Inhaled Oxygen Concentration - - Weight 90 kg (198 lb 6.6 oz) 03/08/2024 11:10 PM CDT Height 175.3 cm (5' 9 ) 03/08/2024 11:10 PM CDT Body Mass Index 29.3 03/08/2024 11:10 PM CDT Plan of Treatment Health Maintenance Due Date Last Done Comments Colon Cancer Screening-Colonoscopy 1950 Depression Screening 1950 Hepatitis C Screening 1951 Hepatitis B Screening 1969 Zoster Vaccine (1 of 2) 2001 Well Visit 65+ 2016 Pneumococcal vaccine 65+ (2 of 2 - PCV) 02/11/2019 02/11/2018 Covid-19 Vaccine (2023-2 5 season) 2024 04/11/2023, 11/22/2022, 05/04/2022, Additional history exists Fall Risk Assessment 03/10/2025 03/10/2024 Influenza Vaccine (Season Ended) 2025 04/11/2023, 05/04/2022, 03/21/2021, Additional history exists DTaP/Tdap/Td Vaccine (2 - Td or Tdap) 12/15/2029 12/16/[address] [facility] SUPPLEMENT Advance Directives For more information, please contact: [phone] * Full Code (Latest Code Status on File) Date Activated Date Inactivated Comments 03/09/2024 1:27 AM 03/10/2024 7:03 PM Care Teams Edge Runner Relationship Specialty Start Date End Date Olesya Carey MD [address] [facility] [address] [place] [address] PCP - General Family Practice 03/08/24
--- OUTSIDE RECORDS SUMMARY | 2024-10-14 14:29 | XMS_ITS | Continuity of Care Document ---
Author Organization [facility] Address [address] [place] [address] [address] [place] [address] Phone Care Team Providers Care Weed Burner Name Role Phone Doisy, Edward Unavailable Unavailable Advance Directives Directive Yes / No Effective Date File Name No Information Encounters Encounter Description Practice Location Reason(s) For Visit Diagnoses Date Provider Providers Copied on Encounter [facility], [address], [place], [place], [id number], [place] tel:[phone] [facility] No Information [address] Edward. [address] , [address], [place], [address], [place]. tel:[phone] Family History Family Member Type Diagnosis Age At Onset No Information Payers Payer name Insurance type Covered green party ID Authoriza tikamar(s) [employer] SOI CI [id number] Social History Type Description Quantity Date Captured Comments Sex Male Smoking Status No Information Chief Complaint And Reason For Visit No Information Reason For Referral Reason For Referral No Information History Of Present Illness Encounter Date Complaint History Of Prese nt Illness No Information Functional Status Date Functional Assessmen t No Information Instructions Date Instruction Additional Infor mation No Information Assessments Type Assessment Date No Information Patient Care Teams Name Effective Dates (start - stop) Status Members No Information
--- OUTSIDE RECORDS SUMMARY | 2024-10-14 14:29 | XMS_ITS | Referral Summary ---
Author Organization [facility] Address [address] [place] [address] Care Team Providers Care Reporting Coordinator Name Role Phone Olesya Carey MD Primary [...] Tobacco: Never Tobacco Cessation:Counseling Given: Not Answered [facility] Utilities Answer Date Recorded In the past 12 months has e [employer], [employer], oil, or water [employer] threatened to shut off services in your home? No 03/09/2024 Social Connection and Isolation Panel [NHANES] A nswer Date Recorded In a typical week, how many times do you talk on the phone with family, friends, or neighbors? Once a week 03/09/2024 How often do you get together with friends or re latives? Once a week 03/09/2024 How often do you attend tenriism or buddhism serv ices? Never 03/09/2024 Do you belong to any clubs o r organizations such as tenriism groups, unions, fraternal or athletic groups, or [...] any time in the past 12 m [facility], were you homeless or living in a fci (including now)? 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 Gender Identity Not on file Sexual Orientation Not on file Last Filed Vital Signs Vital Sign Reading [...] 03/08/2024 11:10 PM CDT Plan of Treatment Not on file Insurance MEDICARE [place] [id number] [facility] SUPPLE[facility] Advance Directives For more information, please contact: [phone] * Full Code (Latest Code Status on File) Date Activated Date Inactivated Comments 03/09/2024 1:27 AM 03/10/2024 7:03 PM Care Teams Reporting Coordinator Relationship Specialty Start Date End Date Olesya Carey MD [address] [place] [address] PCP - General Family Practice 03/08/24
[2024-10-14 15:19] LABS: Basophils Percent Auto 0.8 % (0.2-1.2); Eosinophils Absolute Auto 0.2 K/mm3 (0-0.3); Hematocrit 40.1 % (42.0-52.0); Hemoglobin 13.3 g/dL (14.0-18.0); Immature Granulocyte Absolute 0.03 K/mm3 (0.00-0.031); Immature Granulocyte Percent A 0.6 % (0-0.5); Mean Corpuscular HGB Conc 33.2 g/dl (32-36); Mean Corpuscular Hemoglobin 31.4 pg (26-34); Mean Corpuscular Volume 94.8 fl (80-100); Mean Platelet Volume 9.1 fl (7.4-10.4); Monocytes Absolute Auto 0.5 K/mm3 (0.1-0.6); Neutrophils Absolute Auto 3.2 K/mm3 (1.3-6.7); Neutrophils Percent Auto 60.6 % (45.5-73.1); Platelet Count Result 144 k/mm3 (150-375); Red Blood Count 4.23 M/mm3 (4.6-6.20); Red Cell Distribution Width 12.3 % (11.5-14.5); White Blood Count 5.2 K/mm3 (4.5-10.0)
--- OUTSIDE RECORDS SUMMARY | 2024-10-14 15:23 | XMS_ITS | Clinical Summary ---
Author Organization [facility] Address [address] [place] [address] Care Team Providers Care Foreign Exchange Position Clerk Name Role Phone Olesya Carey MD Primary [...] Tobacco: Never Tobacco Cessation:Counseling Given: Not Answered [facility] Utilities Answer Date Recorded In the past 12 months has e [employer], [employer], oil, or water [employer] threatened to shut off services in your home? No 03/09/2024 Social Connection and Isolation Panel [NHANES] A nswer Date Recorded In a typical week, how many times do you talk on the phone with family, friends, or neighbors? Once a week 03/09/2024 How often do you get together with friends or re latives? Once a week 03/09/2024 How often do you attend nondenominational or spiritism serv ices? 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
--- OUTSIDE RECORDS SUMMARY | 2024-10-14 15:24 | XMS_ITS | Continuity of Care Document ---
Author Organization [facility] Address [address] [place] [address] [address] [place] [address] Phone Care Team Providers Care Water Service Dispatcher Name Role Phone Doisy, Edward Unavailable Unavailable Advance Directives Directive Yes / No Effective Date File Name No Information Encounters Encounter Description Practice Location Reason(s) For Visit Diagnoses Date Provider Providers Copied on Encounter [facility], [address], [place], [place], [id number], [place] tel:[phone] [facility] No Information [address] Edward. [address] , [address], [place], [address], [place]. tel:[phone] Family History Family Member Type Diagnosis Age At Onset No Information Payers Payer name Insurance type Covered libertarian ID Authoriza tikamar(s) [employer] SOI CI [id number] Social History Type Description Quantity Date Captured [...]
--- OUTSIDE RECORDS SUMMARY | 2024-10-14 15:24 | XMS_ITS | Referral Summary ---
Author Organization [facility] Address [address] [place] [address] Care Team Providers Care Disbursement Clerk Name Role Phone Olesya Carey MD [...] Tobacco: Never Tobacco Cessation:Counseling Given: Not Answered [facility] Utilities Answer Date Recorded In the past 12 months has e [employer], [employer], oil, or water [employer] threatened to shut off services in your home? No 03/09/2024 Social Connection and Isolation Panel [NHANES] A nswer Date Recorded In a typical week, how many times do you talk on the phone with family, friends, or neighbors? Once a week 03/09/2024 How often do you get together with friends or re latives? Once a week 03/09/2024 How often do you attend religion or spiritism serv ices? Never 03/09/2024 Do you belong to any clubs o r organizations such as religion groups, unions, fraternal or athletic groups, or [...] any time in the past 12 m [facility], were you homeless or living in a usp (including now)? 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
--- OUTSIDE RECORDS SUMMARY | 2024-10-14 15:24 | XMS_ITS | Clinical Summary ---
Author Organization [facility] Address [address] [place] [address] Care Team Providers Care Clinical Review Nurse Name Role Phone None, Provider Primary Care [...] complete this topic Insurance MEDICARE Care Teams Clinical Review Nurse Relationship Specialty Start Date End Date None, Provider, PCP - General 04/15/19
[2024-10-14 15:28] LABS: Alanine Aminotransferase 22 U/L (6-50); Albumin Level 4.1 g/dL (3.5-5.1); Alkaline Phosphatase 60 U/L (38-126); Anion Gap 8 mmol/L (4-12); Aspartate Amino Transferase 25 U/L (17-59); Bilirubin,Total 0.4 mg/dL (0.2-1.3); Blood Urea Nitrogen 22 mg/dL (9-20); Calcium 8.8 mg/dL (8.4-10.2); Carbon Dioxide 25 mmol/L (22-30); Chloride 104 mmol/L (98-107); Estimated CRCL calculation 47 ml/min; Estimated Glomerular Filt Rate 57; Glucose 91 mg/dL (65-110); Lipase 67 U/L (23-300); Potassium 3.8 mmol/L (3.4-5.0); Sodium 137 mmol/L (137-145)
[2024-10-14 15:33] LABS: Add Urine Microscopic? YES; Appearance Urine Clear (Clear); Bacteria Urine None Seen /hpf; Bilirubin Urine Negative (Negative); Blood Urine 1+ (Negative); Color Urine Yellow (Yellow); Glucose Urine UA Negative (Negative); Ketones Urine Negative (Negative); Leukocyte Esterase Ur Negative LEU/UL (Negative); Nitrate Urine Negative (Negative); Non Pathogenic Casts 0-2; Protein Urine Negative (Negative); RBC Urine 0-2 /hpf (0-2); Specific Grav Ur 1.006 (1.001-1.035); Squamous Epithelial Cell Urine None Seen /hpf (Few); Urobilinogen Urine 0.2 mg/dL (<2.0); WBC Urine 0-5 /hpf (0-3)
[2024-10-14] MEDS: MECLIZINE HCL 25 MG TABLET PO (15:47)
[2024-10-14 16:07] LABS: Influenza A QL RT-PCR Negative (Negative); Influenza B QL RT-PCR Negative (Negative); RSV RNA, RT-PCR Negative (Negative); SARS-CoV-2 RNA PCR Negative (Negative)
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
== END 2024-10-14 17:57 | disposition home or self-care (01) ==
PROVIDERS: Emergency Medicine; Emergency Provider Emergency Medicine
DX: B34.9 Viral infection, unspecified (principal); R42 Dizziness and giddiness; Z20.822 Contact with and (suspected) exposure to COVID-19
CPT/HCPCS: 36415; 70450; 80053; 81001; 83690; 85025; 87637; 99284; A9270

== ENCOUNTER 2024-12-13 12:53 | Outpatient (CLI) | payer MEDICARE, OTHER, SELFPAY ==
--- OUTSIDE RECORDS SUMMARY | 2024-12-13 13:04 | XMS_ITS | Clinical Summary ---
Author Organization [facility] Address [address] [place] [address] Care Team Providers Care Deaf Interpreter Name Role Phone Olesya Carey MD Primary [...] Tobacco: Never Tobacco Cessation:Counseling Given: Not Answered [facility] Utilities Answer Date Recorded In the past 12 months has e [employer], [employer], oil, or water [employer] threatened to shut off services in your home? No 03/09/2024 Social Connection and Isolation Panel [NHANES] A nswer Date Recorded In a typical week, how many times do you talk on the phone with family, friends, or neighbors? Once a week 03/09/2024 How often do you get together with friends or re latives? Once a week 03/09/2024 How often do you attend hinduism or baptist serv ices? Never 03/09/2024 Do you belong to any clubs o r organizations such as hinduism groups, unions, fraternal or athletic groups, or [...] any time in the past 12 m [facility], were you homeless or living in a prison (including now)? No 03/09/2024 Personal Safety Answer [...] on file Legal Sex Male 7:36 PM [employer]ICE [employer] Gender Identity Not on file Sexual Orientation [...] 11:10 PM CDT Height 175.3 cm (5' 9) 03/08/2024 11:10 PM CDT Body Mass Index [...] Td or Tdap) 12/15/2029 12/16/2019 Insurance MEDICARE [address] [facility] SUPPLEMENT Advance Directives For more information, please contact: [phone] * Full Code (Latest Code Status on File) Date Activated Date Inactivated Comments 03/09/2024 1:27 AM 03/10/2024 7:03 PM Care Teams Deaf Interpreter Relationship Specialty Start Date End Date Olesya Carey MD [address] [place] [address] PCP - General Family Practice 03/08/24
--- OUTSIDE RECORDS SUMMARY | 2024-12-13 13:04 | XMS_ITS | Referral Summary ---
Author Organization [facility] Address [address] [place] [address] Care Team Providers Care Bankruptcy Legal Assistant Name Role Phone Olesya Carey MD Primary [...] Tobacco: Never Tobacco Cessation:Counseling Given: Not Answered [facility] Utilities Answer Date Recorded In the past 12 months has e [employer], [employer], oil, or water [employer] threatened to shut off services in your home? No 03/09/2024 Social Connection and Isolation Panel [NHANES] A nswer Date Recorded In a typical week, how many times do you talk on the phone with family, friends, or neighbors? Once a week 03/09/2024 How often do you get together with friends or re latives? Once a week 03/09/2024 How often do you attend druze or jehovah's witness serv ices? Never 03/09/2024 Do you belong to any clubs o r organizations such as druze groups, unions, fraternal or athletic groups, or [...] any time in the past 12 m [facility], were you homeless or living in a halfway (including now)? 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
--- OUTSIDE RECORDS SUMMARY | 2024-12-13 13:04 | XMS_ITS | Continuity of Care Document ---
Author Organization [facility] Address [id number] [place] [address] [address] [place] [address] Phone Care Team Providers Care Blintze Roller Name Role Phone Doisy, Edward Unavailable Unavailable Advance Directives Directive Yes / No Effective Date File Name No Information Encounters Encounter Description Practice Location Reason(s) For Visit Diagnoses Date Provider Providers Copied on Encounter [facility], [address], [place], [place], [id number], [place] tel:[phone] [facility] No Information [address] Edward. [address], [place], [address], [place]. tel:[phone] Family History Family Member Type Diagnosis Age At Onset No Information Payers Payer name Insurance type Covered constitution party ID Authoriza tikamar(s) [employer]I CI [id number] Social History Type Description Quantity Date Captured [...]
[2024-12-13 14:23] LABS: Basophils Absolute Auto 0.1 K/mm3 (0.0-0.1); Basophils Percent Auto 0.8 % (0.2-1.2); Eosinophils Absolute Auto 0.3 K/mm3 (0-0.3); Eosinophils Percent Auto 5.3 % (0-4.4); Hematocrit 43.3 % (42.0-52.0); Hemoglobin 14.2 g/dL (14.0-18.0); Immature Granulocyte Absolute 0.02 K/mm3 (0.00-0.031); Immature Granulocyte Percent A 0.3 % (0-0.5); Lymphocytes Absolute Auto 1.19 K/mm3 (0.9-3.2); Lymphocytes Percent Auto 19.6 % (18.3-44.2); Mean Corpuscular HGB Conc 32.8 g/dl (32-36); Mean Corpuscular Hemoglobin 31.1 pg (26-34); Mean Platelet Volume 9.1 fl (7.4-10.4); Monocytes Absolute Auto 0.4 K/mm3 (0.1-0.6); Monocytes Percent Auto 7.2 % (2.6-8.5); Neutrophils Absolute Auto 4.1 K/mm3 (1.3-6.7); Neutrophils Percent Auto 66.8 % (45.5-73.1); Platelet Count Result 151 k/mm3 (150-375); Red Blood Count 4.56 M/mm3 (4.6-6.20); Red Cell Distribution Width 11.9 % (11.5-14.5); White Blood Count 6.1 K/mm3 (4.5-10.0)
[2024-12-13 14:34] LABS: Alanine Aminotransferase 16 U/L (6-50); Albumin Level 4.2 g/dL (3.5-5.1); Alkaline Phosphatase 56 U/L (38-126); Anion Gap 7 mmol/L (4-12); Aspartate Amino Transferase 44 U/L (17-59); Bilirubin,Total 0.7 mg/dL (0.2-1.3); Blood Urea Nitrogen 21 mg/dL (9-20); Calcium 9.3 mg/dL (8.4-10.2); Carbon Dioxide 29 mmol/L (22-30); Chloride 102 mmol/L (98-107); Estimated Glomerular Filt Rate 56; Glucose 95 mg/dL (65-110); Potassium 4.7 mmol/L (3.4-5.0); Sodium 138 mmol/L (137-145)
== END 2024-12-13 12:54 | disposition home or self-care (01) ==
LOC: ANHGOSHLAB 12:54
PROVIDERS: PCP Family Medicine; Visit Provider Family Medicine
DX: I10 Essential (primary) hypertension (principal); Z00.00 Encounter for general adult medical examination without abnormal findings; E53.8 Deficiency of other specified B group vitamins; F32.A Depression, unspecified
CPT/HCPCS: 36415; 80053; 82607; 84443; 85025

== ENCOUNTER 2025-01-09 08:43 | Outpatient (CLI) | payer MEDICARE, OTHER, SELFPAY ==
--- NOTE | ~2025-01-09 | MR_ITS ---
MRI of the brain Clinical History: Other signs and symptoms of cognitive function Technique: Axial and sagittal T1-weighted images were acquired. These were followed by axial T2-weigh ginger, diffusion weighted, gradient, and FLAIR images. Findings: There is no acute infarct, intracranial hemorrhage, or mass lesion. There are minimal chron ic microvascular ischemic changes in the periventricular white matter. Ventricles and subarachnoid spaces are dilated. Orbits are unremarkable. There is mild bilateral ethm oid, bilateral maxillary, and right frontal sinus disease. Remaining paranasal sinuses and mastoid ai r cells are clear. Major intracranial flow voids are intact. Sagittal midline structures are intact. IMPRESSION: No acute infarct, intracranial hemorrhage, or mass lesion. Mild chronic microvascular ischemic change, and mild generalized atrophy. Sinus disease, as above. Reviewed, dictated and finalized at location .
== END 2025-01-09 08:44 | disposition home or self-care (01) ==
PROVIDERS: PCP Family Medicine; Visit Provider Family Medicine
DX: R41.89 Other symptoms and signs involving cognitive functions and awareness (principal); R93.0 Abnormal findings on diagnostic imaging of skull and head, not elsewhere classified
CPT/HCPCS: 70551